=== PATIENT | male | born 1980 | race Caucasian/White ===

== ENCOUNTER 2017-07-21 19:41 | Emergency (ER) | payer OTHER ==
--- NOTE | 2017-07-21 19:52 | EDM.PDOC ---
ED HPI GENERAL MEDICAL PROBLEM - General Chief Complaint: Upper Extremity Injury/Pain Stated Complaint: Fall; Left elbow injury Time Seen by Provider: 07/21/17 19:47 Source of Information: Reports: Patient, Family, RN, RN Notes Reviewed History Limitations: Reports: No Limitations - History of Present Illness INITIAL COMMENTS - FREE TEXT/NARRATIVE: Patient presents to the ED at [facility] complaining of left elbow pain after he fell down a flight of stairs. Patient is not sure how many steps he fell down. He states he has left elbow pain that extends up to the left shoulder. No ROM problems. Patient denies any numbness, tingling, or paresthesia. No previous injury or fall. No previous left elbow surgeries. Onset: Today Onset Date: 07/21/17 Onset Time: 19:20 Duration: Waxing/Waning Location: Reports: Upper Extremity, Left Severity: Moderate Improves with: Reports: Rest Worsens with: Reports: Movement Context: Reports: Trauma Associated Symptoms: Reports: No Other Symptoms Treatments SHEET TESTER: Reports: Other (see below) (None) left elbow/lower arm Pain Score (Numeric/FACES): 4 - Related Data Allergies Allergy/AdvReac Type Severity Reaction Status Date / Time No Known Allergies Allergy Verified 07/21/17 19:57 Home Meds: Home Meds . [No Known Home Meds] 07/21/17 [History] Review of Systems - Review of Systems Review Of Systems: See Below Constitutional: Denies: Chills, Fever Respiratory: Denies: Shortness of Breath, Cough Cardiovascular: Denies: Chest Pain, Palpitations Musculoskeletal: Reports: Arm Pain, Joint Pain Skin: Reports: No Symptoms Neurological: Reports: No Symptoms. Denies: Dizziness, Headache, Numbness, Paresthesia, Tingling ED EXAM, GENERAL - Physical Exam Exam: See Below Exam Limited By: No Limitations General Appearance: Alert, No Apparent Distress Respiratory/Chest: No Respiratory Distress, Lungs Clear, Normal Breath Sounds Cardiovascular: Normal Peripheral Pulses, Regular Rate, Rhythm Peripheral Pulses: 2+: Radial (L), Radial (R) Extremities: Normal Range of Motion, Normal Capillary Refill. No: Joint Swelling Neurological: Alert, Oriented Skin Exam: Warm, Dry, Intact, Normal Color, No Rash Course - Vital Signs Last Recorded V/S: Last Vital Signs Temp 36.3 C 01/10/18 19:48 Pulse 64 07/21/17 20:18 Resp 16 07/21/17 20:18 BP 144/95 H 07/21/17 20:18 Pulse Ox 97 07/21/17 19:48 - Orders/Labs/Meds Orders: Active Orders 24 hr Category Date Time Status Elbow Min 3V Lt [CR] Stat Exams 07/21/17 19:47 Taken - Radiology Interpretation Free Text/Narrative:: Elbow Left 3V Min: Negative exam - see scanned report in EMR Departure - Departure Time of Disposition: 20:36 Disposition: Home, Self-Care 01 Condition: Good Clinical Impression: Injury of elbow, left Qualifiers: Encounter type: initial encounter Qualified Code(s): S59.902A - Unspecified injury of left elbow, initial encounter Fall Qualifiers: Encounter type: initial encounter Qualified Code(s): W19.XXXA - Unspecified fall, initial encounter - Discharge Information Instructions: Elbow Contusion Forms: ED Department Discharge Additional Instructions: 1. Stay well hydrated and rest 2. May alternate Tylenol/Advil as needed 3. Apply ice several times a day 4. May use left arm as usual, but take it easy 5. See your Primary as symptoms warrant 6. Call with any questions - Problem List Review Problem List Initiated/Reviewed/Updated: Yes - My Orders Last 24 Hours: My Active Orders 07/21/17 19:47 Elbow Min 3V Lt [CR] Stat - Assessment/Plan Last 24 Hours: My Active Orders 07/21/17 19:47 Elbow Min 3V Lt [CR] Stat
== END 2017-07-21 20:44 | disposition home or self-care (01) ==
LOC: VM.ED 19:41
DX: S59.902A Unspecified injury of left elbow, initial encounter (principal); W19.XXXA Unspecified fall, initial encounter
CPT/HCPCS: 73080-LT; 99283